=== PATIENT | male | born 1950 | race Hispanic/Latino ===

== ENCOUNTER 2021-09-29 08:18 | Day surgery (SDC) | payer MEDICARE, MEDICAID ==
[~2021-09-29 08:18] MED LIST: Lidocaine 1% PF 2 ML SDV INJECT SCH
[2021-09-29] MEDS: Polymyxin B/Trimethoprim 10 ML Bottle EYELF SCH ×4 (09:03→10:47)
--- NOTE | 2021-09-29 09:08 | PCM.PREANE ---
Preanesthetic Assessment - Anesthesia/Transfusion/Family Hx Anesthesia History: Prior Anesthesia Without Reaction Transfusion History: No Prior Transfusion(s) - Review of Systems General: No Symptoms Pulmonary: No Symptoms (hx of Asthma), Other Cardiovascular: Other (HTN) Gastrointestinal: No Symptoms Neurological: No Symptoms Other: Reports: None - Physical Assessment NPO Status Date: 09/28/21 NPO Status Time: 20:00 Vital Signs: Last Vital Signs Temp 97.2 F 09/29/21 08:45 Pulse 63 09/29/21 08:45 Resp 16 09/29/21 08:45 BP 139/67 09/29/21 08:45 Pulse Ox 96 09/29/21 08:45 Height: 1.52 m Weight: 81.647 kg ASA Class: 3 Mental Status: Alert & Oriented x3 Airway Class: Mallampati = 3 Dentition: Reports: Normal Dentition Thyro-Mental Finger Breadths: 3 Mouth Opening Finger Breadths: 3 ROM/Head Extension: Limited/Partial Lungs: Clear to Auscultation, Normal Respiratory Effort Cardiovascular: Regular Rate, Regular Rhythm - Allergies Allergies/Adverse Reactions: Allergies Allergy/AdvReac Type Severity Reaction Status Date / Time No Known Allergies Allergy Verified 09/29/21 08:35 - Anesthesia Plan Beta Jason: Carvedilol Med Last Dose Date: 09/28/21 Med Last Dose Time: 09:00 - Acknowledgements Anesthesia Type Planned: MAC Pt an Appropriate Candidate for the Planned Anesthesia: Yes Alternatives and Risks of Anesthesia Discussed w Pt/Guardian: Yes Pt/Guardian Understands and Agrees with Anesthesia Plan: Yes PreAnesthesia Questionnaire Cardiovascular History: Reports: High Cholesterol, Hypertension Respiratory History: Reports: Asthma Endocrine/Metabolic History: Reports: Other (See Below) (borderline diabetic) - Past Surgical History GI Surgical History: Reports: Cholecystectomy, Hernia, Abdominal Female Surgical History: Reports: Section (x 3) - HOME MEDS Home Medications: Home Meds Losartan Potassium 100 mg PO DAILY 09/28/21 [History] amLODIPine [Norvasc] 5 mg PO DAILY 09/28/21 [History] atorvaSTATin Calcium [Lipitor] 20 mg PO DAILY 09/28/21 [History] carvediloL [Coreg] 25 mg PO DAILY 09/28/21 [History] hydroCHLOROthiazide [Hydrochlorothiazide] 12.5 mg PO DAILY 09/28/21 [History] - CURRENT (IN HOUSE) MEDS Current Meds: Current Medications Brimonidine Tartrate (Brimonidine 0.2% Ophth Soln 5 Ml Bottle) 0 ml EYELF ASDIRECTED FRANKIE Stop: 09/29/21 16:00 Cefuroxime Sodium (Cefuroxime 10 Mg/Ml Syringe) 0 mg EYELF ASDIRECTED FRANKIE Stop: 09/29/21 16:00 Lidocaine HCl (Lidocaine 1% Pf 2 Ml Sdv) 0 ml INJECT ASDIRECTED FRANKIE Stop: 09/29/21 16:00 Phenylephrine HCl (Phenylephrine 2.5% Ophth Soln 2 Ml Bot) 0 ml EYELF ASDIRECTED FRANKIE Stop: 09/29/21 16:00 Pilocarpine HCl (Pilocarpine 4% Ophth Soln 15 Ml Bot) 0 ml EYELF ASDIRECTED FRANKIE Stop: 09/29/21 16:00 Polymyxin/Trimethoprim Sulfate (Polymyxin B/Trimethoprim 10 Ml Bottle) 0 ml EYELF ASDIRECTED FRANKIE Stop: 09/29/21 16:00 Tetracaine HCl (Tetracaine Hcl/Pf 0.5% 4 Ml Bottle) 0 ml EYEBOTH ASDIRECTED FRANKIE Stop: 09/29/21 16:00 Tropicamide (Tropicamide 1% Ophth Soln 15 Ml Bottle) 0 ml EYELF ASDIRECTED FRANKIE Stop: 09/29/21 16:00
[2021-09-29] MEDS: Brimonidine 0.2% Ophth Soln 5 ML Bottle EYELF SCH ×4 (09:10→10:47)
[2021-09-29] MEDS: Phenylephrine 2.5% Ophth Soln 2 ML Bot EYELF SCH ×5 (09:15→10:26)
[2021-09-29] MEDS: Tropicamide 1% Ophth Soln 15 ML Bottle EYELF SCH ×4 (09:20→10:07)
[2021-09-29] MEDS: Tetracaine HCl/PF 0.5% 4 ML Bottle EYEBOTH SCH ×2 (10:19→10:32)
[2021-09-29] MEDS: Cefuroxime 10 MG/ML SYRINGE EYELF SCH ×2 (10:45→10:47)
[2021-09-29] MEDS: Pilocarpine 4% Ophth Soln 15 ML Bot EYELF SCH ×2 (10:46→10:47)
--- NOTE | 2021-09-29 10:49 | PCM48HPAN ---
Post Anesthesia Note - EVALUATION WITHIN 48HRS OF ANESTHETIC Vital Signs in Normal Range: Yes Patient Participated in Evaluation: Yes Respiratory Function Stable: Yes Airway Patent: Yes Cardiovascular Function Stable: Yes Hydration Status Stable: Yes Pain Control Satisfactory: Yes Nausea and Vomiting Control Satisfactory: Yes Mental Status Recovered: Yes Vital Signs: Last Vital Signs Temp 36.2 C 09/29/21 08:45 Pulse 63 09/29/21 08:45 Resp 16 09/29/21 08:45 BP 139/67 09/29/21 08:45 Pulse Ox 96 09/29/21 08:45
== END 2021-09-29 10:58 | disposition home or self-care (01) ==
LOC: JD.SDS 08:18
PROVIDERS: ATTEND Ophthalmology
DX: E11.36 Type 2 diabetes mellitus with diabetic cataract (principal); H25.813 Combined forms of age-related cataract, bilateral; H35.033 Hypertensive retinopathy, bilateral; H16.223 Keratoconjunctivitis sicca, not specified as Sjogren's, bilateral; H02.831 Dermatochalasis of right upper eyelid; H02.834 Dermatochalasis of left upper eyelid; I10 Essential (primary) hypertension; J45.909 Unspecified asthma, uncomplicated; Z79.899 Other long term (current) drug therapy
CPT/HCPCS: C1780

== ENCOUNTER 2021-10-08 07:29 | Day surgery (SDC) | payer MEDICARE, MEDICAID ==
--- NOTE | 2021-10-08 08:01 | PCM.PREANE ---
Preanesthetic Assessment - Anesthesia/Transfusion/Family Hx Anesthesia History: Prior Anesthesia Without Reaction Family History of Anesthesia Reaction: No Transfusion History: No Prior Transfusion(s) Intubation History: Unknown - Review of Systems General: No Symptoms Pulmonary: Other (asthma-pt's daughter states pt doesn't use inhalers and has no problems with SOB ) Cardiovascular: No Symptoms Gastrointestinal: No Symptoms Neurological: No Symptoms Other: Reports: None - Physical Assessment NPO Status Date: 10/07/21 NPO Status Time: 23:30 ASA Class: 2 Mental Status: Alert & Oriented x3 Airway Class: Mallampati = 3 Thyro-Mental Finger Breadths: 3 Mouth Opening Finger Breadths: 2 ROM/Head Extension: Full Lungs: Clear to Auscultation, Normal Respiratory Effort Cardiovascular: Regular Rate, Regular Rhythm - Allergies Allergies/Adverse Reactions: Allergies Allergy/AdvReac Type Severity Reaction Status Date / Time No Known Allergies Allergy Verified 10/07/21 17:57 - Anesthesia Plan Beta Jason: Carvedilol Med Last Dose Date: 10/07/21 Med Last Dose Time: 20:30 - Acknowledgements Anesthesia Type Planned: MAC Pt an Appropriate Candidate for the Planned Anesthesia: Yes Alternatives and Risks of Anesthesia Discussed w Pt/Guardian: Yes Pt/Guardian Understands and Agrees with Anesthesia Plan: Yes PreAnesthesia Questionnaire HEENT History: Reports: Cataract Cardiovascular History: Reports: High Cholesterol, Hypertension Respiratory History: Reports: Asthma Gastrointestinal History: Reports: None Genitourinary History: Reports: None Musculoskeletal History: Reports: Arthritis Endocrine/Metabolic History: Reports: Other (See Below) (borderline diabetic) - Past Surgical History GI Surgical History: Reports: Cholecystectomy, Hernia, Abdominal Female Surgical History: Reports: Section (x 3) - SUBSTANCE USE Tobacco Use Status *Q: Never Tobacco User - HOME MEDS Home Medications: Home Meds Losartan Potassium 100 mg PO DAILY 09/28/21 [History] amLODIPine [Norvasc] 5 mg PO DAILY 09/28/21 [History] atorvaSTATin Calcium [Lipitor] 20 mg PO DAILY 09/28/21 [History] carvediloL [Coreg] 25 mg PO DAILY 09/28/21 [History] hydroCHLOROthiazide [Hydrochlorothiazide] 12.5 mg PO DAILY 09/28/21 [History] - CURRENT (IN HOUSE) MEDS Current Meds: Current Medications Brimonidine Tartrate (Brimonidine 0.2% Ophth Soln 5 Ml Bottle) 0 ml EYERT ASDI RECTED FRANKIE Stop: 10/08/21 18:00 Cefuroxime Sodium (Cefuroxime 10 Mg/Ml Syringe) 0 mg EYERT ASDIRECTED FRANKIE Stop: 10/08/21 18:00 Lidocaine HCl (Lidocaine 1% Pf 2 Ml Sdv) 0 ml INJECT ASDIRECTED FRANKIE Stop: 10/08/21 18:00 Phenylephrine HCl (Phenylephrine 2.5% Ophth Soln 2 Ml Bot) 0 ml EYERT ASDIRECTED FRANKIE Stop: 10/08/21 18:00 Pilocarpine HCl (Pilocarpine 4% Ophth Soln 15 Ml Bot) 0 ml EYERT ASDIRECTED FRANKIE Stop: 10/08/21 18:00 Polymyxin/Trimethoprim Sulfate (Polymyxin B/Trimethoprim 10 Ml Bottle) 0 ml EYERT ASDIRECTED FRANKIE Stop: 10/08/21 18:00 Tetracaine HCl (Tetracaine Hcl/Pf 0.5% 4 Ml Bottle) 0 ml EYEBOTH ASDIRECTED FRANKIE Stop: 10/08/21 18:00 Tropicamide (Tropicamide 1% Ophth Soln 15 Ml Bottle) 0 ml EYERT ASDIRECTED FRANKIE Stop: 10/08/21 18:00
[2021-10-08] MEDS: Polymyxin B/Trimethoprim 10 ML Bottle EYERT SCH ×4 (08:13→09:37)
[2021-10-08] MEDS: Brimonidine 0.2% Ophth Soln 5 ML Bottle EYERT SCH ×4 (08:17→09:37)
[2021-10-08] MEDS: Phenylephrine 2.5% Ophth Soln 2 ML Bot EYERT SCH ×6 (08:22→09:17)
[2021-10-08] MEDS: Tropicamide 1% Ophth Soln 15 ML Bottle EYERT SCH ×4 (08:26→09:00)
[2021-10-08] MEDS: Tetracaine HCl/PF 0.5% 4 ML Bottle EYEBOTH SCH ×3 (09:07→09:21)
[2021-10-08] MEDS: Cefuroxime 10 MG/ML SYRINGE EYERT SCH ×2 (09:18→09:36)
[2021-10-08] MEDS: Lidocaine 1% PF 2 ML SDV INJECT SCH ×2 (09:18→09:22)
[2021-10-08] MEDS: Pilocarpine 4% Ophth Soln 15 ML Bot EYERT SCH ×2 (09:21→09:37)
--- NOTE | 2021-10-08 09:35 | PCM48HPAN ---
Post Anesthesia Note - EVALUATION WITHIN 48HRS OF ANESTHETIC Vital Signs in Normal Range: Yes Patient Participated in Evaluation: Yes Respiratory Function Stable: Yes Airway Patent: Yes Cardiovascular Function Stable: Yes Hydration Status Stable: Yes Pain Control Satisfactory: Yes Nausea and Vomiting Control Satisfactory: Yes Mental Status Recovered: Yes
== END 2021-10-08 09:49 | disposition home or self-care (01) ==
LOC: JD.SDS 07:29
PROVIDERS: ATTEND Ophthalmology
DX: E11.36 Type 2 diabetes mellitus with diabetic cataract (principal); H25.811 Combined forms of age-related cataract, right eye; H35.033 Hypertensive retinopathy, bilateral; H02.831 Dermatochalasis of right upper eyelid; H02.834 Dermatochalasis of left upper eyelid; I10 Essential (primary) hypertension; E78.00 Pure hypercholesterolemia, unspecified; J45.909 Unspecified asthma, uncomplicated; Z79.899 Other long term (current) drug therapy; Z90.49 Acquired absence of other specified parts of digestive tract; Z98.890 Other specified postprocedural states
CPT/HCPCS: 66984; J0697; C1780

== ENCOUNTER 2022-03-10 08:47 | Day surgery (SDC) | payer MEDICARE, MEDICAID ==
[~2022-03-10 08:47] MED LIST changes: +Lactated Ringers 1,000 ML IV SCH; -Lidocaine 1% PF 2 ML SDV INJECT SCH; +Lidocaine 1%/Sod Bicarbonate in NS 8.4% 1 ML Syringe IDERM PRN; +Sodium Chloride 0.9% 10 ML Syringe FLUSH PRN; +Sodium Chloride 0.9% 10 ML Syringe FLUSH SCH
[2022-03-10] MEDS ORDERED: Lidocaine 1% with EPINEPHrine 1:100,000 20 ML MDV ONE (09:17)
[2022-03-10] MEDS ORDERED: Bupivacaine 0.5%/EPINEPHrine 1:200,000 50 ML MDV ONE (09:17)
[2022-03-10] MEDS ORDERED: Acetaminophen 325 MG Tab PO ONE (09:51)
[2022-03-10] MEDS ORDERED: fentaNYL 100 MCG/2 ML SDV IVPUSH PRN (09:52)
[2022-03-10] MEDS ORDERED: Ondansetron 4 MG/2 ML SDV IVPUSH PRN (09:52)
[2022-03-10] MEDS ORDERED: HYDROmorphone 0.5 MG/0.5 ML Syringe IVPUSH PRN (09:52)
[2022-03-10] MEDS ORDERED: Gabapentin 300 MG Cap PO ONE (10:00)
[2022-03-10] MEDS ORDERED: Rocuronium 50 MG/5 ML Vial ONE ×2 (10:05→11:40)
[2022-03-10] MEDS ORDERED: Ondansetron 4 MG/2 ML SDV ONE (10:05)
[2022-03-10] MEDS ORDERED: Lidocaine 1% 5 ML VIAL ONE (10:06)
[2022-03-10] MEDS ORDERED: ceFAZolin 1 GM Vial ONE (10:06)
[2022-03-10] MEDS ORDERED: Dexamethasone 4 MG/ML 5 ML MDV ONE (10:06)
[2022-03-10] MEDS ORDERED: fentaNYL 100 MCG/2 ML SDV ONE (10:07)
[2022-03-10] MEDS ORDERED: Propofol 200 MG/20 ML SDV ONE (10:07)
[2022-03-10] MEDS ORDERED: Midazolam 1 MG/ML 2 ML SDV ONE (10:15)
[2022-03-10] MEDS ORDERED: ePHEDrine 50 MG/ML SDV ONE (11:14)
[2022-03-10] MEDS ORDERED: Sugammadex Sodium 200 MG/2 ML VIAL ONE (11:28)
== END 2022-03-10 15:50 | disposition home or self-care (01) ==
LOC: JD.SDS 08:47
PROVIDERS: ATTEND Surgery
DX: K43.9 Ventral hernia without obstruction or gangrene (principal); K42.9 Umbilical hernia without obstruction or gangrene; K43.2 Incisional hernia without obstruction or gangrene; I12.9 Hypertensive chronic kidney disease with stage 1 through stage 4 chronic kidney disease, or unspecified chronic kidney disease; I25.10 Atherosclerotic heart disease of native coronary artery without angina pectoris; E78.2 Mixed hyperlipidemia; J44.9 Chronic obstructive pulmonary disease, unspecified; M19.90 Unspecified osteoarthritis, unspecified site; N18.30 Chronic kidney disease, stage 3 unspecified; Z91.048 Other nonmedicinal substance allergy status; Z79.899 Other long term (current) drug therapy; Z79.82 Long term (current) use of aspirin
CPT/HCPCS: 36415; 49652; 83880; A9270; C1781; J0690; J1100; J2250; J2405; J2704; J3010; J3490; J7120; 00790; 99100

== ENCOUNTER 2023-05-25 20:43 | Emergency (ER) | payer MEDICAID, MEDICARE ==
[2023-05-25] MEDS ORDERED: Sodium Chloride 0.9% 10 ML Syringe FLUSH PRN (21:00)
[2023-05-25] MEDS ORDERED: Metoclopramide 10 MG Tab PO ONE (21:12)
[2023-05-25] MEDS ORDERED: Aluminum Hydroxide/Magnesium Hydroxide/Simethicone Susp 30 ML Cup PO ONE (21:12)
[2023-05-25 21:27] LABS: BASOPHILS ABSOLUTE AUTO 0.02 K/mm3 (0.01-0.08); BASOPHILS PERCENT AUTO 0.2 % (0.1-1.2); EOSINOPHILS ABSOLUTE AUTO 0.44 K/mm3 (0.04-0.36); EOSINOPHILS PERCENT AUTO 5.2 (0.7-5.8); HEMOGLOBIN 11.4 gm/dl (11.2-15.7); IMMATURE GRAN ABSOLUTE AUTO 0.02 K/mm3 (0.00-0.10); IMMATURE GRAN PERCENT AUTO 0.2 % (<=1.0); LYMPHOCYTES ABSOLUTE AUTO 2.61 K/mm3 (1.18-3.74); LYMPHOCYTES PERCENT AUTO 30.8 % (19.3-51.7); MEAN CORPUSCULAR HEMOGLOBIN 27.9 pg (25.6-32.2); MEAN CORPUSCULAR HGB CONC 31.7 g/dl (32.2-35.5); MEAN CORPUSCULAR VOLUME 88.2 fl (79.4-94.8); MEAN PLATELET VOLUME 9.3 fl (9.4-12.3); MONOCYTES ABSOLUTE AUTO 0.65 K/mm3 (0.24-0.36); MONOCYTES PERCENT AUTO 7.7 % (4.7-12.5); NEUTROPHILS ABSOLUTE AUTO 4.73 K/mm3 (1.56-6.13); NEUTROPHILS PERCENT AUTO 55.9 % (34.0-71.1); PLATELET COUNT,PLT 234 K/mm3 (182-369); RED BLOOD CELL COUNT 4.08 M/mm3 (3.98-5.22); WHITE BLOOD CELL COUNT,WBC 8.47 K/mm3 (3.98-10.04)
[2023-05-25 21:50] LABS: A/G RATIO 0.9 (1-2); ALBUMIN 3.3 g/dl (3.4-5.0); ANION GAP 13.2 (5-15); BILIRUBIN TOTAL 0.3 mg/dL (0.2-1.0); C-REACTIVE PROTEIN 0.5 mg/dL (<1.0); CALCIUM 9.4 mg/dL (8.5-10.1); CREATININE 1.9 mg/dL (0.55-1.02); EST CRCL DRUG DOSING (CG) 20.86 mL/min; MAGNESIUM 2.1 mg/dL (1.8-2.4); POTASSIUM,K 4.2 mEq/L (3.5-5.1); PROTEIN TOTAL,TP 7.2 g/dl (6.4-8.2)
== END 2023-05-25 23:22 | disposition home or self-care (01) ==
LOC: JD.ED 20:43
DX: R10.13 Epigastric pain (principal); E78.00 Pure hypercholesterolemia, unspecified; J45.909 Unspecified asthma, uncomplicated; K21.9 Gastro-esophageal reflux disease without esophagitis; I12.9 Hypertensive chronic kidney disease with stage 1 through stage 4 chronic kidney disease, or unspecified chronic kidney disease; N18.9 Chronic kidney disease, unspecified; M19.90 Unspecified osteoarthritis, unspecified site; Z79.899 Other long term (current) drug therapy; Z79.82 Long term (current) use of aspirin
CPT/HCPCS: 36415; 80053; 83690; 83735; 84484; 85025; 86140; 93005; 99284; A9270; 93010; 99283

== ENCOUNTER 2023-05-28 16:41 | Emergency (ER) | payer MEDICARE ==
[2023-05-28] MEDS ORDERED: Famotidine 20 MG/2 ML SDV IVPUSH ONE (17:43)
[2023-05-28] MEDS ORDERED: Metoclopramide 10 MG/2 ML SDV IVPUSH ONE (17:43)
[2023-05-28] MEDS ORDERED: Sodium Chloride 0.9% 1,000 ML IV STA (17:43)
[2023-05-28 18:06] LABS: BASOPHILS ABSOLUTE AUTO 0.03 K/mm3 (0.01-0.08); BASOPHILS PERCENT AUTO 0.3 % (0.1-1.2); EOSINOPHILS ABSOLUTE AUTO 0.33 K/mm3 (0.04-0.36); EOSINOPHILS PERCENT AUTO 3.6 (0.7-5.8); HEMOGLOBIN 11.9 gm/dl (11.2-15.7); IMMATURE GRAN ABSOLUTE AUTO 0.03 K/mm3 (0.00-0.10); IMMATURE GRAN PERCENT AUTO 0.3 % (<=1.0); LYMPHOCYTES ABSOLUTE AUTO 2.08 K/mm3 (1.18-3.74); LYMPHOCYTES PERCENT AUTO 22.6 % (19.3-51.7); MEAN CORPUSCULAR HEMOGLOBIN 28.5 pg (25.6-32.2); MEAN CORPUSCULAR HGB CONC 32.2 g/dl (32.2-35.5); MEAN CORPUSCULAR VOLUME 88.5 fl (79.4-94.8); MEAN PLATELET VOLUME 9.4 fl (9.4-12.3); MONOCYTES ABSOLUTE AUTO 0.51 K/mm3 (0.24-0.36); MONOCYTES PERCENT AUTO 5.5 % (4.7-12.5); NEUTROPHILS ABSOLUTE AUTO 6.23 K/mm3 (1.56-6.13); NEUTROPHILS PERCENT AUTO 67.7 % (34.0-71.1); PLATELET COUNT,PLT 242 K/mm3 (182-369); RED BLOOD CELL COUNT 4.18 M/mm3 (3.98-5.22); WHITE BLOOD CELL COUNT,WBC 9.21 K/mm3 (3.98-10.04)
[2023-05-28] MEDS ORDERED: Aluminum Hydroxide/Magnesium Hydroxide/Simethicone Susp 30 ML Cup PO ONE (18:15)
[2023-05-28 18:23] LABS: APPEARANCE,URINE CLEAR (Clear); BILIRUBIN,URINE NEGATIVE (Negative); COLOR,URINE LIGHT YELLOW (Yellow); GLUCOSE,URINE NEGATIVE (Negative); KETONES,URINE NEGATIVE (Negative); LEUKOCYTE ESTERASE,URINE TRACE (Negative); NITRITE,URINE NEGATIVE (Negative); OCCULT BLOOD,URINE NEGATIVE (Negative); PH,URINE 7.5 (5.0-8.0); PROTEIN,URINE NEGATIVE (Negative); UROBILINOGEN,URINE 0.2 (0.2-1.0)
[2023-05-28 18:31] LABS: BACTERIA,URINE FEW /hpf (FEW); MUCUS,URINE NOT SEEN /hpf (FEW); RBC,URINE NOT SEEN /hpf (0-5); SQUAMOUS EPITHELIAL CELLS,UR 0-5 /hpf (0-5)
[2023-05-28 18:32] LABS: A/G RATIO 0.8 (1-2); ALBUMIN 3.4 g/dl (3.4-5.0); ANION GAP 11.9 (5-15); BILIRUBIN TOTAL 0.4 mg/dL (0.2-1.0); BUN/CREATININE RATIO 19.4 (14-18); CALCIUM 9.5 mg/dL (8.5-10.1); CREATININE 1.8 mg/dL (0.55-1.02); EST CRCL DRUG DOSING (CG) 19.99 mL/min; POTASSIUM,K 3.9 mEq/L (3.5-5.1); PROTEIN TOTAL,TP 7.6 g/dl (6.4-8.2)
[2023-05-28] MEDS ORDERED: Sucralfate Suspension 1 GM/10 ML Cup PO ONE (19:04)
== END 2023-05-28 21:26 | disposition home or self-care (01) ==
LOC: JD.ED 16:41
DX: R10.13 Epigastric pain (principal); E78.00 Pure hypercholesterolemia, unspecified; I12.9 Hypertensive chronic kidney disease with stage 1 through stage 4 chronic kidney disease, or unspecified chronic kidney disease; N18.9 Chronic kidney disease, unspecified; J45.909 Unspecified asthma, uncomplicated; Z79.82 Long term (current) use of aspirin; Z79.899 Other long term (current) drug therapy
CPT/HCPCS: 36415; 80053; 81001; 83690; 84484; 85025; 96374; 96375; 99284; A9270; J2765; J3490; J7030

== ENCOUNTER 2025-09-13 14:04 | Emergency (ER) | payer MEDICARE, OTHER ==
[2025-09-13 15:33] LABS: BASOPHILS ABSOLUTE AUTO 0.0 K/mm3 (0.0-0.2); BASOPHILS PERCENT AUTO 0.5 % (0.0-1.0); EOSINOPHILS ABSOLUTE AUTO 0.3 K/mm3 (0.0-0.4); EOSINOPHILS PERCENT AUTO 3.3 % (0.0-6.0); IMMATURE GRAN ABSOLUTE AUTO 0.03 K/mm3 (0.00-0.05); IMMATURE GRAN PERCENT AUTO 0.4 % (0.0-0.4); LYMPHOCYTES ABSOLUTE AUTO 2.0 K/mm3 (1.0-4.8); LYMPHOCYTES PERCENT AUTO 25.7 % (24.0-44.0); MEAN PLATELET VOLUME 9.4 fl (9.4-12.3); MONOCYTES ABSOLUTE AUTO 0.6 K/mm3 (0.0-0.8); MONOCYTES PERCENT AUTO 7.2 % (0.0-8.0); NEUTROPHILS ABSOLUTE AUTO 4.8 K/mm3 (1.8-7.7); NEUTROPHILS PERCENT AUTO 62.9 % (41.0-71.0); NRBC ABSOLUTE 0.00 (0.00-0.02); NRBC PERCENT 0.0 % (0.0-0.2); PLATELET COUNT,PLT 216 K/mm3 (150-400); RED BLOOD CELL COUNT 4.82 M/mm3 (4.10-5.30); WHITE BLOOD CELL COUNT,WBC 7.62 K/mm3 (3.9-11.3)
[2025-09-13 16:06] LABS: A/G RATIO 0.8 (1-2); ALANINE AMINOTRANSFERASE,ALT 15.0 U/L (14-59); ASPARTATE AMNIOTRANSFERASE,AST 14.0 U/L (15-37); BILIRUBIN TOTAL 0.5 mg/dL (0.2-1.0); BLOOD UREA NITROGEN,BUN 39.0 mg/dL (7-18); CARBON DIOXIDE,CO2 23.0 mEq/L (21-32); CHLORIDE,CL 107.0 mEq/L (98-107); CREATININE 2.0 mg/dL (0.55-1.02); EST CRCL DRUG DOSING (CG) 18.34 mL/min; ESTIMATED GFR 26.0 mL/min (>60); GLUCOSE RANDOM 118.0 mg/dL (70-99); POTASSIUM,K 4.6 mEq/L (3.5-5.1); PROTEIN TOTAL,TP 7.2 g/dl (6.4-8.2); SODIUM,NA 139.0 mEq/L (136-145)
[2025-09-13] MEDS: Ondansetron 4 MG Tab.DIS PO ONE (16:27)
== END 2025-09-13 17:45 | disposition home or self-care (01) ==
LOC: JD.ED 14:04
DX: I48.0 Paroxysmal atrial fibrillation (principal); I10 Essential (primary) hypertension; E78.00 Pure hypercholesterolemia, unspecified; K21.9 Gastro-esophageal reflux disease without esophagitis; Z90.49 Acquired absence of other specified parts of digestive tract; Z79.899 Other long term (current) drug therapy; Z79.82 Long term (current) use of aspirin
CPT/HCPCS: 36415; 71045; 80053; 84484; 85025; 85379; 93005; 99284; A9270